=== PATIENT | male | born 1990 | race Caucasian/White ===

== ENCOUNTER 2020-09-04 20:49 | Emergency (ER) | payer OTHER ==
[~2020-09-04] VITALS: Ht 190.5 cm; Wt 81.6 kg
--- NOTE | 2020-09-04 21:28 | NUR ---
Pt came in with c/o headache PL:09/01, radiating from front to back of head. Pt stated "history of headaches and got the covid vaccine 1 week ago". Aggrevates headache by coughing. A/O x4, c/o nausea and dizziness no vomitting noted. No SOB or labored breathing, ambulatory, accompanied by partner. Speech is clear and able to speak in complete sentences. Ambulatory, steady gait.
--- NOTE | 2020-09-04 21:50 | NUR ---
Dr. Hammonds at bedside MSE in progress.
[2020-09-04] MEDS ORDERED: DEXAMETHASONE SOD PHOSPHATE 4 MG INJ IM ONE (22:15)
[2020-09-04] MEDS ORDERED: diphenhydrAMINE 50 MG/1 ML VIAL IM ONE (22:15)
[2020-09-04] MEDS ORDERED: METOCLOPRAMIDE HCL 10 MG/2 ML VIAL IM ONE (22:15)
[2020-09-04] MEDS ORDERED: diphenhydrAMINE 50 MG/1 ML VIAL ONE (22:25)
[2020-09-04] MEDS ORDERED: METOCLOPRAMIDE HCL 10 MG/2 ML VIAL ONE (22:25)
[2020-09-04] MEDS ORDERED: DEXAMETHASONE SOD PHOSPHATE 10 MG INJ ONE (22:38)
--- NOTE | 2020-09-04 23:21 | NUR ---
Patient discharged to home in stable condition. Written and verbal after care instructions given. Patient verbalizes understanding of instructions. Stressed follow up or return to ER for worsening s/s. Pt given medications as ordered, instructed pt for safety precautions, instructed pt not to drive, partner at bedside stated she will be the one to drive home. Steady gait.
[2020-09-04 23:28] VITALS: BP 131/67
== END 2020-09-04 23:29 | disposition home or self-care (01) ==
LOC: ER 20:57
DX: R51.9 Headache, unspecified (principal)
CPT/HCPCS: 96372 ×2; 99284; J1100; J1200; J2765; A4663

== ENCOUNTER 2024-12-11 06:22 | Emergency (ER) | payer BC, OTHER ==
[~2024-12-11] VITALS: Ht 190.5 cm; Wt 95.3 kg
[2024-12-11] MEDS ORDERED: DEXAMETHASONE SOD PHOSPHATE 10 MG INJ ONE (07:10)
[2024-12-11] MEDS ORDERED: diphenhydrAMINE 50 MG/1 ML VIAL ONE (07:10)
[2024-12-11 07:11] LABS: PLATELET COUNT (AUTO) 184 K/uL (152-348); RED BLOOD CELL COUNT(AUTO) 5.24 MIL/uL (4.06-5.63); RED CELL DISTRIBUTION WIDTH 13.0 % (12.1-16.2); WHITE BLOOD COUNT (AUTO) 6.3 K/uL (3.6-10.2)
[2024-12-11] MEDS ORDERED: METOCLOPRAMIDE HCL 10 MG/2 ML VIAL ONE (07:11)
[2024-12-11 07:20] LABS: CREATININE 0.7 mg/dL (0.6-1.3); SODIUM SERUM 139 mmol/L (136-145); UREA NITROGEN, BLOOD 17 mg/dL (7-18)
[2024-12-11] MEDS: diphenhydrAMINE 50 MG/1 ML VIAL IVP ONE (07:30)
[2024-12-11] MEDS: DEXAMETHASONE SOD PHOSPHATE 4 MG INJ IV ONE (07:30)
[2024-12-11] MEDS: IV NORMAL SALINE 1000 ML BAG IV ONE (07:30)
[2024-12-11] MEDS: METOCLOPRAMIDE HCL 10 MG/2 ML VIAL IV ONE (07:30)
[2024-12-11] MEDS ORDERED: SWABABLE VALVE TRANSFER SET EA MC ONE (07:34)
[2024-12-11] MEDS ORDERED: IV NORMAL SALINE 0 ML IV ONE (07:34)
[2024-12-11] MEDS ORDERED: IOHEXOL 350 100 ML INFUS..BTL ONE (07:34)
[2024-12-11 08:15] VITALS: BP 112/96
[2024-12-11] MEDS ORDERED: KETOROLAC TROMETHAMINE 15 MG INJ ONE (09:02)
[2024-12-11] MEDS: KETOROLAC TROMETHAMINE 15 MG INJ IVP ONE (09:06)
[2024-12-11] MEDS ORDERED: LIDOCAINE 5% PATCH TD ONE (09:20)
[2024-12-11] MEDS ORDERED: CYCL5TAB PO (09:21)
[2024-12-11] MEDS ORDERED: IBUP-1955 PO (09:21)
[2024-12-11] MEDS ORDERED: LIDO30AD10 TP (09:21)
[2024-12-11] MEDS: LIDOCAINE 5% PATCH TD ONE (09:30)
[2024-12-11 09:39] VITALS: BP 106/88; O2SAT 96
== END 2024-12-11 09:30 | disposition home or self-care (01) ==
LOC: ER 06:30
DX: S16.1XXA Strain of muscle, fascia and tendon at neck level, initial encounter (principal); G44.209 Tension-type headache, unspecified, not intractable; G43.909 Migraine, unspecified, not intractable, without status migrainosus; X58.XXXA Exposure to other specified factors, initial encounter; Y93.89 Activity, other specified; Y92.89 Other specified places as the place of occurrence of the external cause; Y99.8 Other external cause status
CPT/HCPCS: 99285; 96374; 96375; 71045; 96361; 80048; 85025; 84484; 36415; 93005; J1885; J1100; J1200; J2765; J7040; A4606; A4663; Q9967